=== PATIENT | male | born 2000 | race Caucasian/White ===

== ENCOUNTER 2019-09-12 14:17 | Emergency (ER) | payer OTHER ==
[~2019-09-12] VITALS: Ht 185.4 cm; Wt 85.9 kg
[2019-09-12 14:26] VITALS: BP 121/68; TEMP 98.8
[2019-09-12] MEDS ORDERED: PROAIR HFA0.09 MG/AC INH (14:31)
[2019-09-12] MEDS ORDERED: PREDNISONE20 MG PO (17:16)
[2019-09-12 17:30] VITALS: PULSE 108
== END 2019-09-12 17:30 | disposition home or self-care (01) ==
LOC: COL.ER 14:17
DX: J45.901 Unspecified asthma with (acute) exacerbation (principal)
CPT/HCPCS: J7512